=== PATIENT | male | born 1980 | race Caucasian/White ===

== ENCOUNTER 2017-06-18 07:42 | Day surgery (SDC) | payer OTHER ==
[2017-06-18 09:20] VITALS: TEMP 98.4
[2017-06-18] MEDS ORDERED: Lactated Ringer's 1,000 ML IV ONE ×2 (10:37)
[2017-06-18] MEDS ORDERED: Lidocaine Hydrochloride 5 ML INJ ONE (10:39)
[2017-06-18] MEDS ORDERED: Propofol 10 mg/ml Inj (20 ML) ONE (10:39)
--- NOTE | 2017-06-18 10:41 | CP.SDSHP ---
Same Day Surgery H & P - History Proposed Procedure: EGD Pre-Op Diagnosis: SEE NOTES - Previous Medical/Surgical History Misc: Other Pain: 4.Moderate Pain - Allergies Allergies: Allergies No Known Allergies Allergy (Verified 06/18/17 07:31) - Physical Exam General Appearance: N Vital Signs: Vital Signs 06/18/17 09:13 Temperature 98.4 F Pulse Rate 80 Respiratory 20 Rate Blood Pressure 141/88 Mental Status: Alert & Oriented x3 Neuro: WNL Heart: WNL Lungs: WNL GI: Other - {Optional Preform as Required} Breast: WNL Abdomen: Other Integument: WNL : WNL Ortho: WNL ENT: WNL - Impression Pt. Evaluated Today:Candidate for Anesthesia & Procedure: Yes - Date & Time Time: 10:40 Short Stay Discharge - Short Stay Discharge Admitting Diagnosis/Reason for Visit: FUNCTIONAL DYSPEPSIA Disposition: HOME/ ROUTINE
[2017-06-18] MEDS ORDERED: Belladonna-Phenobarbital PO STA (10:49)
[2017-06-18] MEDS ORDERED: Sucralfate 1 gm/10 ml Oral Susp UD PO ONE (11:20)
[2017-06-18 12:05] VITALS: BP 119/73; PULSE 75; RESP 18; O2SAT 98
== END 2017-06-18 11:48 | disposition home or self-care (01) ==
LOC: C.ENDO 07:42
PROVIDERS: ATTEND Specialist
DX: K30 Functional dyspepsia (principal); R10.13 Epigastric pain; K44.9 Diaphragmatic hernia without obstruction or gangrene; K31.9 Disease of stomach and duodenum, unspecified
CPT/HCPCS: 43239; 88305; J2704; J7040; J7120